=== PATIENT | female | born 1955 | race Caucasian/White ===

== ENCOUNTER → 2017-04-14 | Outpatient (CLI) | payer OTHER ==
[~2017-04-14] MED LIST: ACTOS PO; ASPIRIN PO; AVAPRO PO; BACLOFEN10 MG PO; FLEXERIL PO; GABAPENTIN300 MG PO; GLUCOTROL5 MG/BOTTL PO; HYDROCHLOROTHIA25 MG PO; LIPITOR40 MG PO; LISINOPRIL PO; LYRICA PO; MELOXICAM15 MG PO; METFORMIN HCL850 MG PO; NITROGLYGERIN0.4 MG SL; PROTONIX PO; TRAMADOL HCL50 M2 PO; VICODIN 5/500 T1 TAB PO; VITAMIN D32000 UNI1 PO; ZYRTEC PO
--- NOTE | ~2017-04-14 | MY29 ---
[facility] A Service of [facility] RADIOLOGY TEXT RESULTS PATIENT: ISABEL SHEA LOCATION: [facility] : 57 UNIT #: [id number] AGE: [address]: Buck Blancas MD SEX: F ORDER DR: [id number] [facility] [address] [place], [place] [address] [id number] O MR#: [id number] Acc #: [id number] NAME: ISABEL SHEA : 1955 SEX: F STUDY DATE/TIME: 04/14/2017 9:53 UNIT: [facility] ROOM: STUDY DESCRIPTION: MY REN SCREENING W/ CAD BILAT Attending Physician: Bukc Blancas M.D. Ordering Physician: Buck Blancas M.D. Primary Care Physician: Buck Blancas M.D. MEDICAL IMAGING REPORT This report is preliminary unless electronic signature is present EXAM Digital screening mammogram 04/14/2017 [facility] HISTORY 61-year-old woman no risk elevation. Annual screen. COMPARISON Mammograms 04/10/2016 FINDINGS Digital imaging of each breast was completed utilizing a two-view examination of each breast in craniocaudal and mediolateral-oblique projections. Review and interpretation of digital mammograms include a second review in conjunction with FDA-approved CAD device. There is a normal parenchymal presentation bilaterally consistent with the patient's age. There are no breast masses imaged and no parenchymal asymmetry is visualized. There are no suspicious microcalcifications and I see no focal architectural disturbance. IMPRESSION Negative screening digital mammogram. One-year followup recommended. Patients over the age of 40 are entered into a reminder system with target due date for the next mammogram. A result letter will also be sent to the patient. BIRADS: 1 Negative Dictated by... Blair Styles M.D. [facility] A Service of [facility] & [facility] RADIOLOGY TEXT RESULTS PATIENT: ISABEL SHEA LOCATION: [facility] : 57 UNIT #: [id number] AGE: [address]: Buck Blancas MD SEX: F ORDER DR: THIS IS AN ELECTRONICALLY VERIFIED REPORT Blair Styles M.D. at 04/15/2017 8:04 AM JBB/to TD: 04/14/2017 18:14 JOB #: [id number] MEDICAL IMAGING REPORT Page 1 of 1 COPY
== END | disposition home or self-care (01) ==
LOC: CWCC 09:44
DX: Z12.31 Encounter for screening mammogram for malignant neoplasm of breast (principal)
CPT/HCPCS: G0202